=== PATIENT | male | born 1935 | race Two or more races ===

== ENCOUNTER 2023-01-11 13:48 | Emergency (ER) | payer OTHER ==
[~2023-01-11] VITALS: Ht 172.7 cm; Wt 81.6 kg
[2023-01-11] MEDS ORDERED: NORVASC2.5 MG PO (14:08)
[2023-01-11] MEDS ORDERED: PLAVIX75 MG (14:08)
[2023-01-11] MEDS ORDERED: LIPITOR20 MG PO (14:08)
[2023-01-11 17:03] LABS: HEMATOCRIT 43.9 % (39.0-48.0); HEMOGLOBIN 15.3 g/dL (13-16.00); MEAN CELL VOLUME 85.8 fL (80.0-100.00); MEAN CORPUSCULAR HGB CONC 34.9 g/dl (32.0-36.0); PLATELET COUNT 189 K/uL (150-450); RED BLOOD COUNT 5.12 M/uL (4.00-6.00); RED CELL DISTRIBUTION WIDTH 14.3 % (11.5-14.5)
[2023-01-11 17:27] LABS: ALBUMIN 3.2 gm/dL (3.4-5.0); BILIRUBIN TOTAL 1.29 mg/dL (0.3-1.2); CALCIUM 9.3 mg/dL (8.5-10.1); CREATININE SERUM 0.43 mg/dL (0.70-1.30); GFR 187.19; GLOBULINA 3.9 G/DL (2.4-3.5); POTASSIUM 4.22 mEq/L (3.5-5.1); TOTAL PROTEIN 7.1 gm/dL (6.4-8.2)
[2023-01-11 17:58] LABS: URINE APPEARANCE Turbid; URINE BILIRRUBIN Negative (NEGATIVE); URINE BLOOD Moderate; URINE COLOR Yellow; URINE GLUCOSE Negative (NEGATIVE); URINE LEUKOCYTE Large; URINE NITRATE Positive; URINE PROTEIN 30 (NEGATIVE)
[2023-01-11 18:02] LABS: URINE EPITHELIAL CELLS 5.8 uL (0.0-38.8); URINE RBC 172.6 uL (0.0-20.8)
[2023-01-11 18:15] LABS: URINE BACTERIA > 9821.5 uL (0.0-1933)
[2023-01-11] MEDS ORDERED: DESITIN57 G1 TOP (19:46)
[2023-01-11] MEDS ORDERED: BACTRIM DS TAB1 EACH PO (19:46)
== END 2023-01-11 23:24 | disposition home or self-care (01) ==
LOC: ER 13:48
PROVIDERS: General Practice
DX: H53.8 Other visual disturbances (principal); I10 Essential (primary) hypertension; Z86.73 Personal history of transient ischemic attack (TIA), and cerebral infarction without residual deficits; Z88.8 Allergy status to other drugs, medicaments and biological substances
CPT/HCPCS: 36415; 70450; 93005; 96365; 99284; J3490